=== PATIENT | male | born 1980 | race Caucasian/White ===

== ENCOUNTER 2022-04-12 06:40 | Inpatient (IN) ==
[2022-04-12] MEDS ORDERED: methylPREDNISolone 125 MG/2 ML VIAL IV STA (07:01)
--- NOTE | 2022-04-12 07:04 | Emergency Department Note ---
Impression & Plan Cervical radicular pain, Acute neck pain ED Provider Note NAME: JUDITH ORTIZ AGE: 42 SEX: M : 1980 ARRIVES VIA: Walk-In INFORMANT: Patient ED PROVIDER(S): Manish Gutiérrez DO CHIEF COMPLAINT: Neck pain HPI: Patient is a 42-year-old male who presents the ER for neck pain. He notes this been going on for several weeks. He was seen and evaluated and had MRI in epic performed on the which showed a bulging disc. He follow-up with Dr. Fofana. He is try to get into the pain clinic but the disc bulge was too severe. He is following with PT as well. He notes movement makes the pain significantly worse. The numbness is on the dorsal aspect and goes down mainly to the third fourth and fifth digits. He has noticed weakness which has been progressing since this past Tuesday. He is having trouble with grasp as well as flexion extension the wrist shoulder and elbow. Pain is a 5 out of 10. No other exacerbating or remitting factors. ROS: See above HPI for pertinent positives & negatives. A total of 10 systems reviewed and were otherwise negative. PAST MEDICAL HISTORY:See Below PAST SURGICAL HISTORY:See Below FAMILY HISTORY:See Below SOCIAL HISTORY:See Below HOME MEDICATIONS:See Below ALLERGIES:See Below VITALS:See Below PHYSICAL EXAMINATION: GENERAL: Sitting up in bed, alert, well appearing, well nourished, no distress, non-toxic EYE EXAM: normal conjunctiva. OROPHARYNX:mucous membranes are moist NECK: supple, no nuchal rigidity, no adenopathy, non-tender LUNGS: Clear to auscultation. Normal chest wall mechanics HEART: no murmurs, S1 normal and S2 normal ABDOMEN: abdomen soft, non-tender, normo-active bowel sounds, no masses, no rebound or guarding. BACK: Back is symmetrical on inspection and there is no deformity, no midline tenderness, no CVA tenderness. SKIN: no rashes and no bruising UPPER EXTREMITIES: Flexion-extension right shoulder elbow wrist grasp 4 out of 5. Radial pulse 2 out of 4. Gross sensation intact. LOWER EXTREMITIES: No pitting edema. NEURO EXAM: Normal sensorium, cranial nerves II-XII grossly intact, normal speech, no gross weakness of arms, no gross weakness of legs. MEDICAL DECISION MAKING: Patient is a 42-year-old male who presents ER for severe neck pain with right arm weakness and numbness which started this past Tuesday. IV was established blood work was obtained. Labs show no significant leukocytosis or anemia. BMP was unremarkable. COVID was negative. Has been n.p.o. since last night. Images were reviewed on paper from [facility]. Discussed with Dr. Fofana who recommends admission. They were down to evaluate him and admitted him for further work-up. He remained n.p.o. while in the ER. Morphine x1 as needed. Patient was given IV steroids. Will likely go to the OR later today or tomorrow. Triage Nursing notes reviewed. Limited review of prior medical records performed Vital Signs: reviewed and remarkable for no significant abnormalities Differential diagnosis: Musculoskeletal, disc herniation, fracture, metastatic disease, cord compression, discitis, sciatica, cauda equina, infection, aortic disease, renal colic, gastrointestinal, as well as other pathologies. ER treatment provided: See below Diagnostics interpreted by me: ECG: none Cardiac Monitoring: An order was placed for continuous cardiac monitoring. The monitor shows a rate of 90 with sinus rhythm. Laboratory studies: As stated above and show below. Imaging studies: See below Consultation(s): D/w Dr. Fofana Procedures: none Critical Care: None Past Med/Surg History Medical History Hx of opioid abuse Last use approx 2014. Hydrocele, right Tobacco chew use 1 can per day Surgical History Hydrocele in adult Family History Father Prostate cancer Grandmother (Paternal) Alzheimer disease Other Myocardial infarction Denies family history of Ovarian cancer Breast cancer Colorectal cancer Social History Smoking Status: Current every day smoker Tobacco Type: Cigarettes Hx Alcohol Use: No Hx Substance Use: No Preferred Language: Irish Communication Ability: Effective Visual Impairment: No Limitations Hearing Ability: Normal Vaccine Customer Representative Required: No Beliefs That Will Affect Care: None marital status: single Current Living Situation: Significant Other current occupational status: employed 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 How many Children do You have: 1 Feels Safe at Home: Yes caffeine: Yes during the past year weight has: remained stable Dental Care, Regularly: Yes Physical Activity Frequency: Daily Seatbelt Use: sometimes Sunscreen Use: No Allergies Allergies Allergy/AdvReac Type Severity Reaction Status Date / Time No Known Drug Allergies Allergy Verified 05/20/20 11:13 Home Meds Home Medications Medication Instructions Recorded Confirmed buprenorphine HCl 8 mg sublingual 8 mg sublingual DAILY 05/20/20 10/08/20 tablet Previous Rx's Medication Instructions Recorded amoxicillin 500 mg capsule 500 mg PO BID 10 days #20 caps 10/08/20 tadalafil 5 mg tablet 5 mg PO DAILY sexual activity #30 08/04/21 tabs methocarbamol 500 mg tablet 500 mg PO BID #14 tabs 02/16/22 methocarbamol 500 mg tablet 500 mg PO BID PRN spasm #14 tabs 02/16/22 Results & Data (ED) Vital Signs Vital Signs - 24 hr 04/12/22 06:44 Temperature 36.5 C Temperature Source Temporal Artery Scan Pulse Rate 87 Pulse Rhythm Regular Pulse Strength Normal Respiratory Rate 20 Respiratory Effort / Characteristics Non-Labored Spontaneous Respiratory Depth Normal Blood Pressure 117/83 Blood Pressure Mean 94 Pulse Oximetry 98 Oxygen Delivery Method Room Air Sepsis Recent Fever Within 48 Hours No Sepsis New/Unexplained Change in Mental Status N/A Sepsis Action Taken by Nursing No Action Required Laboratory Data Result diagrams: 04/12/22 07:13 04/12/22 07:13 Lab Results 04/12/22 04/12/22 04/12/22 Range/Units 07:13 07:13 07:16 WBC 9.73 (4.8-10.8) K/ul RBC 4.78 (4.63-6.08) M/uL Hgb 14.3 (14.0-18.0) g/dl Hct 40.9 (40.1-51.0) % MCV 85.6 (80.0-100.0) fL MCH 29.9 (25.0-34.0) pg MCHC 35.0 (32.0-36.0) g/dL RDW Std Deviation 40.3 (36.4-46.3) fL RDW Coeff of Whit 13.0 (11.5-14.5) % Plt Count 235 (130-400) K/uL MPV 9.2 L (9.4-12.4) fL Immature Gran % (Auto) 0.2 % Neut % (Auto) 65.4 % Lymph % (Auto) 21.9 % Daniels % (Auto) 7.2 % Eos % (Auto) 4.5 % Baso % (Auto) 0.8 % Neut # (Auto) 6.36 (1.4-6.5) K/uL Lymph # (Auto) 2.13 (1.2-3.4) K/uL Daniels # (Auto) 0.70 (0.24-0.82) K/uL Eos # (Auto) 0.44 (0-0.50) K/uL Baso # (Auto) 0.08 (0-0.2) K/uL Immature Gran # (Auto) 0.02 (0.00-0.02) K/uL Sodium 136 (136-145) mmol/L Potassium 3.7 (3.5-5.1) mmol/L Chloride 103 (98-107) mmol/L Carbon Dioxide 28 (21-32) mmol/L Anion Gap 5 (3-11) BUN 19 (6-23) mg/dl Creatinine 0.88 (0.6-1.4) mg/dl Est Cr Clr Drug Dosing 110.5 ml/min Est GFR ( Amer) 123.7 ml/min Est GFR (Non-Af Amer) 106.7 ml/min BUN/Creatinine Ratio 21.6 H (10-20) Glucose 107 H (70-99(Fasting)) mg/dl Calcium 9.1 (8.5-10.1) mg/dl SARS-CoV-2, RNA, NAAT NEGATIVE (NEGATIVE) Administered Medications Discontinued Medications Methylprednisolone (Methylprednisolone 125 Mg/2 Ml Vial) 125 mg IV NOW STA Stop: 04/12/22 07:02 Last Admin: 04/12/22 07:15 Dose: 125 mg Documented By: MO Discharge Plan Visit Data Chief Complaint: Back Injury/Pain Stated Complaint: NUMBNESS FINGERS, BACK PAIN, NUMBNES IN ARMS ED Provider: Manish Gutiérrez Discharge Problem: Cervical radicular pain, Acute neck pain Forms Stand Alone Forms: My [facility] Prescriptions Prescriptions: No Action buprenorphine HCl 8 mg tablet, sublingual 8 mg sublingual DAILY amoxicillin 500 mg capsule 500 mg PO BID 10 Days Qty: 20 0RF tadalafil 5 mg tablet 5 mg PO DAILY Qty: 30 11RF methocarbamol 500 mg tablet 500 mg PO BID PRN (Reason: spasm) Qty: 14 0RF methocarbamol 500 mg tablet 500 mg PO BID Qty: 14 0RF Referrals Referrals: Andrew Ingram CRNP [Primary Care Provider] -
[2022-04-12] MEDS ORDERED: KETOROLAC TROMETHAMINE 15 MG/ML VIAL IV ONE (07:18)
[2022-04-12 07:30] LABS: Basophils # (auto) 0.08 K/uL (0-0.2); Basophils % (auto) 0.8 %; Eosinophils # (auto) 0.44 K/uL (0-0.50); Eosinophils % (auto) 4.5 %; Hematocrit (blood only) 40.9 % (40.1-51.0); Hemoglobin 14.3 g/dl (14.0-18.0); Immature Granulocytes # (auto) 0.02 K/uL (0.00-0.02); Immature Granulocytes % (auto) 0.2 %; Lymphocytes # (auto) 2.13 K/uL (1.2-3.4); Lymphocytes % (auto) 21.9 %; Mean Corpuscular Hemoglobin 29.9 pg (25.0-34.0); Mean Corpuscular Volume 85.6 fL (80.0-100.0); Mean Platelet Volume 9.2 fL (9.4-12.4); Monocytes % (auto) 7.2 %; Neutrophils # (auto) 6.36 K/uL (1.4-6.5); Neutrophils % (auto) 65.4 %; Platelet Count 235 K/uL (130-400); RDW Standard Deviation 40.3 fL (36.4-46.3); Red Blood Count 4.78 M/uL (4.63-6.08); White Blood Count 9.73 K/ul (4.8-10.8)
[2022-04-12 07:53] LABS: BUN Creatinine Ratio 21.6 (10-20); Calcium 9.1 mg/dl (8.5-10.1); Creatinine Clr Calc Pharmacy 110.5 ml/min; Est GFR (African American) 123.7 ml/min; Est GFR (Non-African American) 106.7 ml/min; Potassium 3.7 mmol/L (3.5-5.1)
[2022-04-12] MEDS ORDERED: MoRPHine SULFATE 4 MG/ML 1 ML CARP\\VIAL IV STA (08:15)
[2022-04-12] MEDS ORDERED: ACETAMINOPHEN 1,000 MG/100 ML VIAL IV PRN (08:18)
[2022-04-12] MEDS ORDERED: diphenhydrAMINE Capsule 25 MG CAP PO PRN (08:18)
[2022-04-12] MEDS ORDERED: LORazepam 0.5 MG TAB PO PRN (08:18)
[2022-04-12] MEDS ORDERED: HYDROmorphone INJ 0.5 MG/0.5 ML SYR IV PRN (08:18)
[2022-04-12] MEDS ORDERED: PROMETHAZINE HCL 12.5 MG in SODIUM CHLORIDE 0.9% 50 ML IV PRN (08:18)
[2022-04-12] MEDS ORDERED: ONDANSETRON INJ 2 MG/ML 2 ML VIAL IV PRN (08:18)
[2022-04-12] MEDS ORDERED: ACETAMINOPHEN 500 MG TAB PO PRN (08:18)
[2022-04-12] MEDS ORDERED: ONDANSETRON 4 MG OD TAB PO PRN (08:18)
[2022-04-12] MEDS ORDERED: HYDROmorphone INJ 1 MG/ML SYRINGE IV PRN (08:18)
[2022-04-12] MEDS ORDERED: METOCLOPRAMIDE HCL INJ 5 MG/ML 2 ML VIAL IV PRN (08:18)
[2022-04-12] MEDS ORDERED: NALOXONE HCL 0.4 MG/1 ML VIAL/CARP IV PRN (08:18)
--- NOTE | 2022-04-12 08:28 | History & Physical Report ---
Date of Service April 12, 2022 Assessment & Plan (1) Cervical radicular pain: Plan: Patient is being admitted to Dr. Fofana's service today. He will be made NPO. We have discussed pursuing surgical intervention which would be a possible corpectomy of C7. Risk, benefits, pros cons alternatives were outlined in detail. These include but are not limited to anesthesia, blindness, stroke, paralysis, chronic nerve pain, hardware failure, nonunion, adjacent l evel disease, DVT/PE, wound infection requiring reoperation, dysphagia and dysphonia. DVT prophylaxis has been ordered in the form of teds and SCDs. We will try and arrange surgical intervention at the nearest opportune time. History of Present Illness Chief Complaint: Right upper extremity paresthesia and numbness, cervicalgia Primary Care Provider: MIMI Saleh Jan Is a pleasant 42-year-old gentleman who presented to the emergency room this morning due to progressively worsening right upper extremity numbness, paresthesia and weakness. He has had neck pain for the past 3 months. Right upper extremity symptoms are new. At rest is most palliative. Any type of cervical flexion exacerbates his symptoms. He is right-hand dominant. 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 Does note some progressive weakness over the weekend of his right upper extremity. Ambulates independently. Denies loss of balance. He has been taking ibuprofen mostly for pain control. He has had neck pain for the past 3 months and has seen a chiropractor. He denies receiving any physical therapy or pain management injections. He has received oral steroids from Dr. Leal. He saw Serafin Berry PA-C in our office for above-mentioned complaints. They did discuss options including surgical intervention.. Allergies Allergy/AdvReac Type Severity Reaction Status Date / Time No Known Drug Allergies Allergy Verified 05/20/20 11:13 Home Medications Medication Instructions Recorded Confirmed Type buprenorphine HCl 8 mg sublingual 8 mg sublingual DAILY 05/20/20 10/08/20 History tablet amoxicillin 500 mg capsule 500 mg PO BID 10 days #20 caps 10/08/20 10/08/20 Rx tadalafil 5 mg tablet 5 mg PO DAILY sexual activity #30 08/04/21 08/04/21 Rx tabs methocarbamol 500 mg tablet 500 mg PO BID #14 tabs 02/16/22 Rx methocarbamol 500 mg tablet 500 mg PO BID PRN spasm #14 tabs 02/16/22 Rx Past Med/Surg History Medical History Hx of opioid abuse Last use approx 2014. Hydrocele, right Tobacco chew use 1 can per day Surgical History Hydrocele in adult Family History Father Prostate cancer Grandmother (Paternal) Alzheimer disease Other Myocardial infarction Denies family history of Ovarian cancer Breast cancer Colorectal cancer Social History Smoking Status: Current every day smoker Tobacco Type: Cigarettes Hx Alcohol Use: No Hx Substance Use: No Preferred Language: Estonian Communication Ability: Effective Visual Impairment: No Limitations Hearing Ability: Normal Agency Sales Director Required: No Beliefs That Will Affect Care: None marital status: single Current Living Situation: Significant Other current occupational status: employed 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 How many Children do You have: 1 Feels Safe at Home: Yes caffeine: Yes during the past year weight has: remained stable Dental Care, Regularly: Yes Physical Activity Frequency: Daily Seatbelt Use: sometimes Sunscreen Use: No Review of Systems Review of Systems: All systems reviewed & are unremarkable except as noted in HPI & below Physical Exam Physical Exam: Patient seen and evaluated in the emergency room pod B3 in conjunction with his He is lying in bed in no acute distress Alert and oriented x3 Cooperative with exam No evidence of ankle clonus bilaterally He has breakaway weakness over the right tricep otherwise strength is 5/5 bila teral finger intrinsics, finger extensors, finger flexors, wrist flexors, wrist flexors, biceps and deltoid bilaterally I am unable to elicit any upper motor neuron signs Positive Lhermitte's with flexion Positive Spurling's to the right Constitutional: + thin and cooperative Eyes: normal visual dutta by confrontation ENMT: external ear and nose normal, oropharynx normal Neck: normal visual inspection Respiratory: normal respiratory effort Cardiovascular: Extremities: normal capillary refill Gastrointestinal (Abdomen): Inspection/Auscultation: abdomen normal to inspection Musculoskeletal: Spine: + limited cervical ROM and + cervical muscular tenderness Extremities: extremities normal to inspection and + abnormal strength Skin: no rashes, warm and dry Neurologic: normal touch/pain/proprioception, moves all extremities and + focal motor deficit Psychiatric: A+Ox3, euthymic affect Apperance: appropriately dressed and ap propriately groomed Eye Contact: good eye contact Speech: normal rate/rhythm/volume of speech Results & Data Results & Data ([facility]) Vital Signs (Past 12 Hours) Vital Signs Temp Pulse Resp BP Pulse Ox O2 Del Method 04/12/22 06:44 36.5 C 87 20 117/83 98 Room Air
--- NOTE | 2022-04-12 10:11 | Anesthesiology Consultation ---
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 History Surgery Operation Date: 04/13/22 12:00 Proposed Procedures p C6 Corpectomy - Saad Fofana DO Height/Weight Height: 5 ft 9 in Weight: 82.4 kg Allergies Allergy/AdvReac Type Severity Reaction Status Date / Time No Known Drug Allergies Allergy Verified 05/20/20 11:13 Medications Home Medications Medication Instructions Recorded Confirmed Last Taken buprenorphine HCl 8 mg sublingual 8 mg sublingual DAILY 05/20/20 10/08/20 Unknown tablet amoxicillin 500 mg capsule 500 mg PO BID 10 days #20 caps 10/08/20 10/08/20 Unknown tadalafil 5 mg tablet 5 mg PO DAILY sexual activity #30 08/04/21 08/04/21 Unk nown tabs methocarbamol 500 mg tablet 500 mg PO BID #14 tabs 02/16/22 Unknown methocarbamol 500 mg tablet 500 mg PO BID PRN spasm #14 tabs 02/16/22 Unknown Past Medical History Medical History Hx of opioid abuse Last use approx 2014. Hydrocele, right Tobacco chew use 1 can per day Past Family History Family History Father Prostate cancer Grandmother (Paternal) Alzheimer disease Other Myocardial infarction Denies family history of Ovarian cancer Breast cancer Colorectal cancer Past Surgical History Surgical History Hydrocele in adult Social History Smoking Status: Current every day smoker Hx Alcohol Use: No Hx Substance Use: No Physical Exam Vital Signs Last Vital Signs Temp 97.7 F 04/12/22 06:44 Pulse 87 04/12/22 06:44 Resp 20 04/12/22 06:44 BP 117/83 04/12/22 06:44 Pulse Ox 98 04/12/22 06:44 O2 Del Method 04/12/22 06:44 Testing Laboratory Results 04/12/22 07:13 04/12/22 07:13 Electrocardiogram Date: 02/16/22 IMPRESSION: 1. No acute cervical spinal fracture. 2. Mild to moderate disc space narrowing and osteophytosis at C4-C5 and C5-C6 consistent with degenerative disc disease.
[2022-04-12] MEDS: LACTATED RINGER'S 1,000 ML IV SCH ×2 (12:13→23:56)
[2022-04-12] MEDS: buprenorphine HCL 8 MG SUBL SL SCH ×2 (14:40→16:21)
[2022-04-12] MEDS ORDERED: DEXAMETHASONE SOD INJ 4 MG/ML VIAL ONE (16:12)
[2022-04-12] MEDS: dexAMETHasone 8 MG in SYRINGE 0 ML IV SCH ×2 (16:16→22:31)
[2022-04-13] MEDS ORDERED: ceFAZolin 2000MG 2,000 MG/15 ML SYR IV SCH (06:00)
[2022-04-13] MEDS: dexAMETHasone 8 MG in SYRINGE 0 ML IV SCH (06:18)
[2022-04-13] MEDS: buprenorphine HCL 8 MG SUBL SL SCH (08:47)
--- NOTE | 2022-04-13 11:20 | History & Physical Bridge Note ---
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 Planning for urgent anterior cervical corpectomy of C7.
[2022-04-13] MEDS ORDERED: fentaNYL citrate 100 MCG/2 ML VIAL ONE (11:24)
[2022-04-13] MEDS ORDERED: MIDAZOLAM HCL 1 MG/ML 2ML VIAL ONE (11:24)
[2022-04-13] MEDS ORDERED: DEXAMETHASONE SOD INJ 4 MG/ML VIAL ONE (11:28)
[2022-04-13] MEDS ORDERED: ONDANSETRON INJ 2 MG/ML 2 ML VIAL ONE (11:28)
[2022-04-13] MEDS ORDERED: LIDOCAINE 2% MPF LOCAL 5 ML VIAL INFIL ONE (11:28)
[2022-04-13] MEDS ORDERED: PROPOFOL IV EMULSION 10 MG/ML 20 ML VIAL IV ONE ×2 (11:28→12:16)
[2022-04-13] MEDS ORDERED: ROCURONIUM BROMIDE 10 MG/ML 5 ML VIAL IV ONE (11:28)
[2022-04-13] MEDS ORDERED: ceFAZolin 330 MG/ML 1 GM VIAL ONE (11:42)
[2022-04-13] MEDS ORDERED: HYDROmorphone INJ 2 MG/ML SYR/VIAL ONE (12:17)
[2022-04-13] MEDS ORDERED: ONDANSETRON INJ 2 MG/ML 2 ML VIAL IV PRN ×2 (13:05→15:22)
[2022-04-13] MEDS ORDERED: ePHEDrine sulfate 50 MG/ML AMP IV PRN (13:05)
[2022-04-13] MEDS ORDERED: HYDROmorphone INJ 2 MG/ML SYR/VIAL IV PRN (13:05)
[2022-04-13] MEDS ORDERED: ATROPINE SULFATE 0.1 MG/ML 10ML SYR IV PRN (13:05)
[2022-04-13] MEDS ORDERED: PROMETHAZINE HCL 12.5 MG in SODIUM CHLORIDE 0.9% 50 ML IV PRN ×2 (13:05→15:22)
[2022-04-13] MEDS ORDERED: NEOSTIGMINE METHYLSULFATE 1 MG/ML 10ML VIAL ONE (13:17)
[2022-04-13] MEDS ORDERED: GLYCOPYRROLATE 0.2 MG/ML VIAL ONE (13:17)
[2022-04-13] MEDS ORDERED: FLOSEAL HEMOSTATIC MATRIX 10ML TOP ONE (13:37)
--- NOTE | 2022-04-13 13:48 | Operative Report ---
Post Operative Report Pre & Post Diagnosis Operation Date: 04/13/22 12:00 Pre-Op Diagnosis: Cervical disc herniation with myeloradiculopathy Post-Op Diagnosis: Same I identified the patient and participated in the time-out.: Yes Procedure Operation Date: 04/13/22 12:00 Actual Procedures #1 anterior cervical corpectomy with bilateral foraminotomies C7. #2 anterior cervical arthrodesis C6-T1. #3 placement of 25 mm peek cage C6-T1. #4 placement locally harvested morselized autograft combined with I factor interbody cage. #5 application of a ambassador plate and screws from C6-T1. Surgeon Saad Fofana, Company Pilot Zohra Chao Estimated Blood Loss 15 Findings Consistent with Post-Op Diagnosis Specimens None Indications This is a 42-year-old male who presents above-mentioned diagnosis as it has been progressive in nature is here for urgent decompression and stabilization. Description of Procedure Patient was met with identified informed consent obtained. Patient was then taken to the operative suite underwent ablation placed in spine position on the Maximino table at [place] shaft headman. All bony prominences well-padded eyes inspected to ensure no external pressure placed upon the. This point the anterior cervical spine was prepped and draped in normal sterile fashion. The assistance of fluoroscopy identified the C7 vertebral body. A transverse incision was then placed along the right anterior aspect the cervical spine overlying his region. Blunt dissection with the assistance of bipolar electrocautery was performed down to and exposing the anterior cervical spine from C6-C7 to T1. Several 10 retractors placed. Then formed a complete discectomy of C6-C7 out to the uncovertebral joints bilaterally followed by C7- T1. Johnston distracting pins were then placed in C6 and T1 to distract across the C7 vertebral body. A complete corpectomy was then performed back to the canal identifying massive amounts of disc material that had migrated caudally behind the body adhered to the dura. They removed in their entirety for complete decompression. I did perform bilateral foraminotomies as well. I did place a small amount of DuraGen over the dura prophylactically as it appeared the disc it eroded through the dura. No CSF leak was noted. Endplates were then burred to subcortically bone and a 25 mm peek cage filled with locally harvested morselized autograft and I factor tapped in position. Distracting apparatus was removed and a ambassador plate and screws applied with the assistance of fluoroscopy. The incision was then copiously irrigated explored to ensure no damage to surrounding structures or remaining bleeding. 10 round MANUEL drain inserted. Is then closed with 2 Vicryl in the fascia and 4 Monocryl for final skin closure. Steri-Strip sterile dressings placed. Patient waken taken PACU in stable condition. Please note spinal cord monitoring was utilized at the procedure no changes noted. Lastly Zohra Chao was present out the entire surgery and while the patient positioning complex portions of the surgery and final skin closure. I attest to the content of the Intraoperative Record and any orders documented therein. Any exceptions are noted below.
[2022-04-13] MEDS: fentaNYL citrate 100 MCG/2 ML VIAL IV PRN ×2 (14:10→14:31)
--- NOTE | 2022-04-13 15:16 | Anesthesiology Progress Note ---
Date of Service April 13, 2022 Anesthesia Post Procedure Vital Signs Vital Signs: Temp Pulse Pulse Resp BP Pulse Ox O2 Del Method 04/13/22 15:00 65 19 115/79 97 Room Air 04/13/22 14:55 36.7 C 61 14 116/76 96 Room Air 04/13/22 14:45 62 12 125/81 98 Nasal Cannula 04/13/22 14:35 83 12 130/80 96 Nasal Cannula 04/13/22 14:25 65 12 131/84 100 Nasal Cannula 04/13/22 14:15 63 14 122/76 100 Oxymask 04/13/22 14:05 77 15 129/77 100 Oxymask 04/13/22 13:55 36.2 C L 84 12 120/69 100 Oxymask 04/13/22 11:20 36.7 C 78 18 132/74 99 Room Air 04/13/22 07:25 36.5 C 61 16 111/68 96 Room Air 04/12/22 22:21 36.7 C 64 14 110/70 95 Room Air O2 Flow Rate 04/13/22 15:00 04/13/22 14:55 04/13/22 14:45 2 04/13/22 14:35 2 04/13/22 14:25 4 04/13/22 14:15 10 04/13/22 14:05 10 04/13/22 13:55 10 04/13/22 11:20 04/13/22 07:25 04/12/22 22:21 Pain Intensity Neck: Pain Intensity: 4 Transfer of Care Handoff Completed per policy Notes Mental Status: alert / awake / arousable Patient Amnestic to Procedure: Yes Nausea / Vomiting: adequately controlled Pain: adequately controlled Airway Patency, RR, SpO2: stable & adequate BP & HR: stable & adequate Hydration State: stable & adequate Anesthetic Complications: no major complications apparent
--- NOTE | 2022-04-13 15:20 | Fluoroscopy Report ---
FL cervical 2-3V CLINICAL HISTORY: C6 CORPECTOMY COMPARISON STUDY: None. FLUOROSCOPY TIME: 13 seconds. FINDINGS: 3 fluoroscopic spot images of the cervical spine demonstrate anterior cervical discectomy a nd fusion with corpectomy and bone graft within the lower cervical spine. The exact levels are diffic ult to identify on the fluoroscopic spot images due to the limited windows. However, this appears to involve the C6-T1 levels with C7 corpectomy. The hardware appears intact. IMPRESSION: Fluoroscopic assistance for anterior cervical discectomy and fusion within the lower cerv ical spine as described above. The exact levels are difficult to identify on the fluoroscopic spot im ages due to the limited windows. However, this appears to involve the C6-T1 levels with C7 corpectomy . ACT 112: Negative or not required by law. Electronically signed by: Ej Plummer M.D. 04/13/2022 3:19 PM
[2022-04-13] MEDS ORDERED: hydrOXYzine HCl 25 MG TAB PO PRN (15:22)
[2022-04-13] MEDS ORDERED: FAMOTIDINE 20 MG TAB PO PRN (15:22)
[2022-04-13] MEDS ORDERED: METOCLOPRAMIDE HCL INJ 5 MG/ML 2 ML VIAL IV PRN (15:22)
[2022-04-13] MEDS ORDERED: MAGNESIUM HYDROXIDE SUSP 30 ML UDC PO PRN (15:22)
[2022-04-13] MEDS ORDERED: RACEPINEPHRINE 2.25% NEBU SOLN 0.5 ML VIAL INH PRN (15:22)
[2022-04-13] MEDS ORDERED: ACETAMINOPHEN 500 MG TAB PO PRN (15:22)
[2022-04-13] MEDS ORDERED: bisacodyL 10 MG SUPP PR PRN (15:22)
[2022-04-13] MEDS ORDERED: LORazepam 0.5 MG TAB PO PRN (15:22)
[2022-04-13] MEDS ORDERED: HYDROmorphone INJ 0.5 MG/0.5 ML SYR IV PRN (15:22)
[2022-04-13] MEDS ORDERED: ALUMINUM/MAGNESIUM SUSP 30 ML UDC PO PRN (15:22)
[2022-04-13] MEDS ORDERED: ACETAMINOPHEN 1,000 MG/100 ML VIAL IV PRN (15:22)
[2022-04-13] MEDS ORDERED: dexAMETHasone 8 MG in SYRINGE 0 ML IV PRN (15:22)
[2022-04-13] MEDS ORDERED: traMADol HCL 50 MG TABLET PO PRN (15:22)
[2022-04-13] MEDS ORDERED: LORazepam 0.5 MG in SYRINGE 0 ML IV PRN (15:22)
[2022-04-13] MEDS ORDERED: oxyCODONE HCL IR 5 MG TAB (IMMEDIATE RELEASE) PO PRN (15:22)
[2022-04-13] MEDS ORDERED: HYDROmorphone INJ 1 MG/ML SYRINGE IV PRN (15:22)
[2022-04-13] MEDS ORDERED: NALOXONE HCL 0.4 MG/1 ML VIAL/CARP IV PRN (15:22)
[2022-04-13] MEDS ORDERED: diphenhydrAMINE Capsule 25 MG CAP PO PRN (15:22)
[2022-04-13] MEDS ORDERED: SOD PHOSPHATE/SOD BIPHOSPHATE ENEMA 132 ML BTL PR PRN (15:22)
[2022-04-13] MEDS ORDERED: ONDANSETRON 4 MG OD TAB PO PRN (15:22)
[2022-04-13] MEDS: LACTATED RINGER'S 1,000 ML IV SCH ×2 (15:28→16:30)
--- NOTE | 2022-04-13 16:19 | Anesthesiology Progress Note ---
Date of Service April 13, 2022 Anesthesia Post Procedure Vital Signs Vital Signs: Temp Pulse Pulse Pulse Resp BP Pulse Ox 04/13/22 15:15 97.3 F L 66 14 129/81 95 04/13/22 15:22 04/13/22 15:46 80 18 95 04/13/22 15:46 97.9 F 69 16 118/74 95 04/13/22 15:00 65 19 115/79 97 04/13/22 14:55 98.1 F 61 14 116/76 96 04/13/22 14:45 62 12 125/81 98 04/13/22 14:35 83 12 130/80 96 04/13/22 14:25 65 12 131/84 100 04/13/22 14:15 63 14 122/76 100 04/13/22 14:05 77 15 129/77 100 04/13/22 13:55 97.2 F L 84 12 120/69 100 04/13/22 11:20 98.1 F 78 18 132/74 99 04/13/22 07:25 97.7 F 61 16 111/68 96 04/12/22 22:21 98.1 F 64 14 110/70 95 Pulse Ox O2 Del Method O2 Del Method O2 Flow Rate 04/13/22 15:15 Room Air 04/13/22 15:22 96 Room Air 04/13/22 15:46 Room Air 04/13/22 15:46 Room Air 04/13/22 15:00 Room Air 04/13/22 14:55 Room Air 04/13/22 14:45 Nasal Cannula 2 04/13/22 14:35 Nasal Cannula 2 04/13/22 14:25 Nasal Cannula 4 04/13/22 14:15 Oxymask 10 04/13/22 14:05 Oxymask 10 04/13/22 13:55 Oxymask 10 04/13/22 11:20 Room Air 04/13/22 07:25 Room Air 04/12/22 22:21 Room Air Pain Intensity Neck: Pain Intensity: 4 Transfer of Care Handoff Completed per policy Notes Mental Status: alert / awake / arousable and participated in evaluation Patient Amnestic to Procedure: Yes Nausea / Vomiting: adequately controlled Pain: adequately controlled Airway Patency, RR, SpO2: stable & adequate BP & HR: stable & adequate Hydration State: stable & adequate Anesthetic Complications: no major complications apparent and Pt Satisfied with anesthetic care
[2022-04-13] MEDS: GABAPENTIN 300 MG CAP PO SCH ×2 (16:58→20:49)
[2022-04-13] MEDS ORDERED: COUGH DROP (SUGAR FREE) LOZ 24 LOZ/1 BOX BUCCAL PRN (20:42)
[2022-04-13] MEDS: ceFAZolin 2000MG 2,000 MG/15 ML SYR IV SCH (20:49)
[2022-04-13] MEDS ORDERED: DOCUSATE SODIUM/SENNA 50/8.6MG TAB PO SCH (21:00)
[2022-04-14] MEDS: LACTATED RINGER'S 1,000 ML IV SCH (02:14)
[2022-04-14] MEDS: ceFAZolin 2000MG 2,000 MG/15 ML SYR IV SCH (04:26)
[2022-04-14] MEDS ORDERED: POLYETHYLENE (MIRALAX) 17 GM PACK PO SCH (06:00)
[2022-04-14 06:58] LABS: BUN Creatinine Ratio 22.4 (10-20); Calcium 8.7 mg/dl (8.5-10.1); Creatinine Clr Calc Pharmacy 127.9 ml/min; Est GFR (African American) 131.3 ml/min; Est GFR (Non-African American) 113.3 ml/min; Potassium 3.9 mmol/L (3.5-5.1)
[2022-04-14] MEDS: GABAPENTIN 300 MG CAP PO SCH (08:08)
[2022-04-14] MEDS: buprenorphine HCL 8 MG SUBL SL SCH (08:08)
--- NOTE | 2022-04-14 10:19 | Discharge Summary ---
Date of Service April 14, 2022 Admission HPI Per Admitting Provider Jan Is a pleasant 42-year-old gentleman who presented to the emergency room this morning due to progressively worsening right upper extremity numbness, paresthesia and weakness. He has had neck pain for the past 3 months. Right upper extremity symptoms are new. At rest is most palliative. Any type of cervical flexion exacerbates his symptoms. He is right-hand dominant. 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 Does note some progressive weakness over the weekend of his right upper extremity. Ambulates independently. Denies loss of balance. He has been taking ibuprofen mostly for pain control. He has had neck pain for the past 3 months and has seen a chiropractor. He denies receiving any physical therapy or pain management injections. He has received oral steroids from Dr. Leal. He saw Serafin Berry PA-C in our office for above-mentioned complaints. They did discuss options including surgical intervention.. Principal Diagnosis Cervical disc herniation with myeloradiculopathy Discharge Data Allergies Allergy/AdvReac Type Severity Reaction Status Date / Time No Known Drug Allergies Allergy none Verified 04/12/22 13:56 Consultations 04/12/22 07:20 ED Decision to Admit Stat Procedures Performed Operation Date: 04/13/22 12:00 Actual Procedures p C7 Corpectomy(Not Applicable) - Saad Fofana DO Ordered Studies 04/13/22 [place] cervical 2-3V Routine Hospital Course (1) Cervical radicular pain: Patient was admitted with marked decline in neurologic status secondary to massive disc herniation myeloradiculopathy. Underwent urgent decompression fusion the following day. He tolerated procedure well was taken orthopedic for postoperative. Postop day 1 he was swallowing without difficulty no hoarseness production strength testing. MANUEL drain decreasing appropriately. Subsequent d ischarge home. Discharge orders instructions from the chart for further review. Total Time Total Time Spent Total Time Spent (In Minutes): 20 minutes Discharge Plan Discharge Items Patient Disposition: Home - Self-Care Reason For Visit: HNP CERVICAL SPINE Discharge Diagnosis: Cervical disc herniation with myeloradiculopathy Activity: As commented below Non-emergency contact: Primary Care Provider Call non-emergency contact if: you have any medication questions Follow-up/Referrals: Andrew Ingram CRNP [Primary Care Provider] - Diet: Regular Addtl Attending Provider Instructions: ACTIVITY RECOMMENDATIONS: SELF CARE INSTRUCTIONS AFTER CERVICAL FUSIONS 1. No smoking. Smoking drastically decreases the chance of a solid fusion. 2. No bending, lifting more than 5 pounds, or twisting (roll like a log when turning in bed). 3. You may shower 3 days after surgery. Thoroughly dry wound. Do not soak in the tub. 4. Cervical collar: Must be worn at all times including sleeping. You may remove the brace only to bath, eat and if you are sitting in a recliner. 5. Please walk as much as you can for exercise. Gradually increase the distance that you walk as your endurance increases. SPECIAL CARE INSTRUCTIONS: VERY IMPORTANT TO READ AND REVIEW A. Do not take any anti-inflammatory medications (i.e. Indocin, Advil, Aspirin, Naprosyn, Aleve, Motrin, etc.) as these may inhibit the chance of a solid fusion. Tylenol is okay to take. B. Your surgical incision has been closed with a cosmetic suture under the skin that will dissolve in about 6 weeks. In 14 days, you can use a pair of clean scissors and cut the suture that is left outside of the skin at the ends of your incision. C. Complications are uncommon, but please contact us if you have any signs or symptoms of: 1. wound infection (fever higher than 102.5 degrees F, redness, separation of wound, drainage, or increasing pain from the incision) 2. blood clots in legs (pain, swelling, redness and warmth in legs) 3. urinary tract infection (fever higher than 102.5 degrees, burning upon urination or increased frequency of urination) 4. nerve problems (inability to walk on your toes or heels, numbness, loss of bowel or bladder control) 5. any other symptoms that concern you. D. Please call the office at if you have any concerns or questions about your operation or recovery. MANAGING PAIN AFTER SPINAL SURGERY 1. Narcotic medication is intended for short-term use and will be provided for surgical pain. Surgical pain usually lasts for a period of 4-6 weeks. N arcotic medication includes Percocet, Vicodin, Darvocet, Tylenol #3 or Lortab. 2. Longer-term pain is more appropriately treated with non-narcotic medication such as Tylenol ES. 3. Muscle spasm is not appropriately treated with narcotics. Muscle relaxers such as Soma, Flexeril or Skelaxin can be used along with Tylenol ES. 4. Remember that we all live with some "aches and pains". This is not unusual or uncommon after an injury or as we get older. 5. We will provide appropriate medication within the normal guidelines of their prescribed use. We will also be very cautious and aware of potential abuse and extended duration of patients' medication needs. 6. Please allow 2-3 days to process refills. Prescriptions will not be mailed but must be picked up at the office. FOLLOW UP VISIT: Keep your scheduled follow-up appointment. Any questions, please call the office at . Pending Studies at Discharge: No Stand-Alone Forms: My [facility] [employer], Smoking Cessation Medications and DC Order Prescriptions: New oxycodone 5 mg tablet 5 mg PO Q6H PRN (Reason: pain, severe) Qty: 20 0RF tramadol 50 mg tablet 50 mg PO Q6H PRN (Reason: pain, moderate) Qty: 20 0RF Continued buprenorphine HCl 8 mg tablet, sublingual 8 mg sublingual DAILY gabapentin 300 mg capsule 300 mg PO TID Discharge Orders: Discharge Order (Routine); Ordered 04/14/22 Ordered By: Saad Fofana Admission Data Admit Date/Time: 04/13/22 13:54 Attending Provider: Saad Fofana Admit Provider: Saad Fofana Primary Care Provider: Andrew Ingram Other Providers: Saad Fofana
== END 2022-04-14 11:24 | disposition home or self-care (01) | DRG 472 ==
LOC: ED 06:40 → EDINP 06:40 → 3E 11:38